=== PATIENT | male | born 1990 | race African-American/Black ===

== ENCOUNTER → 2017-06-29 | Outpatient (CLI) | payer OTHER ==
[~2017-06-29] MED LIST: PROHANCE 279.3MG/ML 15ML VIAL (A9576) As Ordered; PROHANCE 279.3MG/ML 5ML VIAL (A9576) As Ordered
== END ==
LOC: M RAD 11:31
DX: C83.85 Other non-follicular lymphoma, lymph nodes of inguinal region and lower limb (principal)
CPT/HCPCS: A9576